=== PATIENT | male | born 1955 | race Two or more races ===

== ENCOUNTER → 2022-02-21 | Emergency (ER) | payer OTHER ==
[~2022-02-21] VITALS: Ht 167.6 cm; Wt 72.6 kg
[2022-02-21 23:45] VITALS: BP 161/97
--- NOTE | 2022-02-21 23:50 | NUR ---
DR. MARCUS JOE AT PT'S BEDSIDE
--- NOTE | 2022-02-22 00:01 | NUR ---
Patient discharged to home in stable condition. Written and verbal after care instructions given. Patient verbalizes understanding of instruction. PT ambulatory with a steady gait
== END | disposition home or self-care (01) ==
LOC: ER 23:13
DX: R06.02 Shortness of breath (principal)

== ENCOUNTER 2022-04-10 20:18 | Emergency (ER) | payer MEDICARE, OTHER ==
[~2022-04-10] VITALS: Ht 167.6 cm; Wt 68.0 kg
--- NOTE | 2022-04-10 20:37 | NUR ---
TOWEL ROLLING MACHINE OPERATOR AT PT'S BEDSIDE
--- NOTE | 2022-04-10 20:37 | NUR ---
TO ER BED 6. BIBWIFE C/O CHEST PAIN AND SOB X 2MONTHS WORSE THIS MORNING. PT STATES "DIAGNOSED WITH PNEUMONIA AND PLEURAL EFFUSION AT [facility] BUT NOT RELIEVED BY PRESCRIBED MEDS". CONNECTED TO MONITOR. AWAITING MD HESS
--- NOTE | 2022-04-10 20:44 | NUR ---
HERMINIO SHAH AT BEDSIDE FOR EKG
--- NOTE | 2022-04-10 21:02 | NUR ---
LFA #20G S/L; PATENT AND INTACT. BLOOD COLLECTED AND SENT TO LAB
[2022-04-10 21:06] LABS: BASOPHILS % (AUTO) 0.5 % (0.0-2.0); EOSINOPHILS % (AUTO) 1.3 % (0.0-6.0); HEMATOCRIT 46 % (39-51); HEMOGLOBIN 15.5 g/dL (13.5-17.5); LYMPHOCYTES # (AUTO) 0.5 K/uL (0.8-4.8); LYMPHOCYTES % (AUTO) 5.5 % (20.0-44.0); MEAN CORPUSCULAR HGB CONC 34 g/dl (31.0-36.0); MEAN CORPUSCULAR VOLUME 93 fL (80-96); MONOCYTES # (AUTO) 1.3 K/uL (0.1-1.30); MONOCYTES % (AUTO) 15.4 % (2.0-12.0); NEUTROPHILS # (AUTO) 6.4 K/uL (1.8-8.9); NEUTROPHILS % (AUTO) 77.3 % (43.0-81.0); PLATELET COUNT (AUTO) 217 K/uL (150-450); RED BLOOD CELL COUNT(AUTO) 4.91 MIL/uL (4.5-6.0); WHITE BLOOD COUNT (AUTO) 8.3 K/uL (4.3-11.0)
[2022-04-10 21:50] LABS: CALCIUM, SERUM 8.1 mg/dL (8.5-10.1); CARBON DIOXIDE 24 mmol/L (21-32); CHLORIDE 97 mmol/L (98-107); GLUCOSE 105 mg/dL (74-106); POTASSIUM 3.7 mmol/L (3.5-5.1); SODIUM SERUM 131 mmol/L (136-145); UREA NITROGEN, BLOOD 21 mg/dL (7-18)
[2022-04-10 21:55] LABS: BAND % (MANUAL) 1 % (0.0-5.0); LYMPHOCYTES % (MANUAL) 14 % (16-48); MONOCYTES % (MANUAL) 9 % (0-11.0); NEUTROPHILS % (MANUAL) 76 (42-76)
--- NOTE | 2022-04-10 22:20 | NUR ---
SYSTEM TECHNOLOGIST AT PT'S BEDSIDE
[2022-04-10] MEDS ORDERED: CEFTRIAXONE 1GM BAG (ER ONLY) 50 ML IV ONE ×2 (22:30→22:40)
[2022-04-10] MEDS ORDERED: AZITHROMYCIN 500 MG in IV D5W 250 ML IV ONE (22:30)
--- NOTE | 2022-04-10 22:38 | NUR ---
COVID ANTIGEN SWAB COLLECTED AND SENT TO LAB
[2022-04-10] MEDS ORDERED: AZITHROMYCIN 500 MG VIAL ONE (22:40)
[2022-04-10] MEDS ORDERED: MORPHINE SULFATE INJ 4 MG/ML DISP.SYRIN ONE (23:15)
[2022-04-10] MEDS ORDERED: MORPHINE SULFATE INJ 2 MG/ML DISP.SYRIN IV ONE (23:30)
[2022-04-10] MEDS ORDERED: ASPIRIN EC 325 MG TABLET.DR PO ONE (23:47)
[2022-04-11] MEDS ORDERED: ASPIRIN 325 MG TABLET PO ONE
--- NOTE | 2022-04-11 00:01 | NUR ---
IV removed. Catheter intact and site benign. Pressure and 4x4 applied to site. No bleeding noted.
--- NOTE | 2022-04-11 00:02 | NUR ---
Patient does not wish to proceed with medical care recommended by Dr. Blanton. Patient given information related to possible complications, up to and including , which could occur as a result of leaving the hospital at this time. Patient verbalizes understanding of risks involved due to leaving against medical advice. Patient has signed AMA form.
[2022-04-11 00:23] VITALS: BP 141/92
== END 2022-04-11 00:29 | disposition left against medical advice (07) ==
LOC: ER 20:35
DX: R07.9 Chest pain, unspecified (principal); J18.9 Pneumonia, unspecified organism; R00.0 Tachycardia, unspecified; M54.31 Sciatica, right side; Z20.822 Contact with and (suspected) exposure to COVID-19; R94.31 Abnormal electrocardiogram [ECG] [EKG]; Z53.29 Procedure and treatment not carried out because of patient's decision for other reasons
CPT/HCPCS: 36415; 71045; 80048; 83605; 83880; 84484 ×3; 85007; 85025; 87040 ×2; 87426; 93005; 96365; 96375; 99285; J0696; J2270; C9803; J0456; J7060; U0003